=== PATIENT | female | born 1960 | race Caucasian/White ===

== ENCOUNTER 2022-04-19 10:50 | Emergency (ER) | payer OTHER ==
[~2022-04-19] VITALS: Ht 154.9 cm; Wt 81.7 kg
[2022-04-19] MEDS ORDERED: CO-ENZYME Q101 EACH PO (11:23)
[2022-04-19] MEDS ORDERED: LIPITOR10 MG PO (11:23)
[2022-04-19] MEDS ORDERED: [UNRECOGNIZED DRUG - OTHER] MC (11:23)
[2022-04-19] MEDS ORDERED: DIPHENOXYLATE-1 EACH PO (11:24)
[2022-04-19] MEDS ORDERED: FLOVENT DISKUS50 MCG INH (11:24)
[2022-04-19] MEDS ORDERED: BLACK ELDERBER1 EACH PO (11:24)
[2022-04-19] MEDS ORDERED: LANTUS SOL100 UNIT/1 SUB-Q (11:25)
[2022-04-19] MEDS ORDERED: GABAPENTIN300 MG PO (11:25)
[2022-04-19] MEDS ORDERED: LEVOTHYROXINE100 MC2 PO (11:25)
[2022-04-19] MEDS ORDERED: NOVOLOG100 UNIT/1 SUB-Q (11:26)
[2022-04-19] MEDS ORDERED: METFORMIN HCL750 MG PO (11:26)
[2022-04-19] MEDS ORDERED: ZESTRIL20 MG PO (11:26)
[2022-04-19] MEDS ORDERED: ZOLOFT100 MG PO (11:27)
[2022-04-19] MEDS ORDERED: ONDANSETRON ODT8 MG PO (11:27)
[2022-04-19] MEDS ORDERED: ONDANSETRON HCL4 MG PO (11:27)
[2022-04-19] MEDS ORDERED: REGLAN10 MG PO (14:21)
== END 2022-04-19 14:53 | disposition home or self-care (01) ==
LOC: ED 10:50
DX: E11.43 Type 2 diabetes mellitus with diabetic autonomic (poly)neuropathy (principal); K31.84 Gastroparesis; J45.909 Unspecified asthma, uncomplicated; I10 Essential (primary) hypertension; E78.5 Hyperlipidemia, unspecified; Z88.0 Allergy status to penicillin; Z88.5 Allergy status to narcotic agent; Z91.040 Latex allergy status; Z79.899 Other long term (current) drug therapy; Z79.84 Long term (current) use of oral hypoglycemic drugs; Z79.4 Long term (current) use of insulin; Z20.822 Contact with and (suspected) exposure to COVID-19
CPT/HCPCS: 36415; 71045; 80053; 81001; 83690; 83735; 85025; 87502; 96361; 96374; 96375; 99284-25; C9803; J1200; J2765; J7030; U0003